=== PATIENT | female | born 1990 | race Caucasian/White ===

== ENCOUNTER 2018-12-23 01:12 | Emergency (ER) | payer OTHER ==
[2018-12-23 01:31] VITALS: TEMP 98; BMI 22.4
[2018-12-23] MEDS ORDERED: DEXAMETHASONE SOD PHOSPHATE 10 MG/1 ML VIAL IM ONE (01:35)
[2018-12-23] MEDS ORDERED: PENICILLIN G BENZATHINE 1,200,000 UNIT/2 ML PFS IM ONE (01:35)
[2018-12-23] MEDS ORDERED: KETOROLAC TROMETHAMINE 60 MG/2 ML VIAL IM ONE (01:35)
[2018-12-23] MEDS ORDERED: DEXAMETHASONE SOD PHOSPHATE 10 MG/1 ML VIAL ONE (01:41)
[2018-12-23] MEDS ORDERED: KETOROLAC TROMETHAMINE 60 MG/2 ML VIAL ONE (01:42)
[2018-12-23] MEDS ORDERED: KETOROLAC TROMETHAMINE 30 MG/1 ML VIAL IVPUSH ONE (01:43)
[2018-12-23] MEDS ORDERED: SODIUM CHLORIDE 0.9% 500 ML INFUS.BAG IV ONE (01:44)
--- NOTE | 2018-12-23 02:00 | PDOC ---
Documentation entered by Heath Goldsmith SCRIBE, acting as scribe for Mary Jo Santiago MD. Mary Jo Santiago MD: This documentation has been prepared by the Rupal paige Elijah, SCRIBE, under my direction and personally reviewed by me in its entirety. I confirm that the documentation accurately reflects all work, treatment, procedures, and medical decision making performed by me. History of Present Illness - General Chief Complaint: Sore Throat Stated Complaint: STREP THROAT/PAIN Time Seen by Provider: 12/23/18 01:28 History Source: Patient Exam Limitations: No Limitations - History of Present Illness Initial Comments: 12/23/18 01:34 Patient is a 28 year old female with no reported past medical history who presents to the ED with Strep Throat lasting for x3 days. Patient was diagnosed , given amoxicillin, but was only able to take the pills for the first day secondary to pain. Patient has no other complaints at this time. Allergies: NKA Past History - Past Medical History Allergies/Adverse Reactions: Allergies Allergy/AdvReac Type Severity Reaction Status Date / Time No Known Allergies Allergy Verified 12/23/18 01:31 COPD: No - Suicide/Smoking/Psychosocial Hx Smoking History: Never smoked Review of Systems - Review of Systems Comments:: 12/23/18 01:37 GENERAL/CONSTITUTIONAL: No fever or chills. No weakness. HEAD, EYES, EARS, NOSE AND THROAT: +Sore Throat. No change in vision. No ear pain or discharge CARDIOVASCULAR: No chest pain or shortness of breath. RESPIRATORY: No cough, wheezing, or hemoptysis. GASTROINTESTINAL: No nausea, vomiting, diarrhea or constipation. GENITOURINARY: No dysuria, frequency, or change in urination. MUSCULOSKELETAL: No joint or muscle swelling or pain. No neck or back pain. SKIN: No rash NEUROLOGIC: No headache, vertigo, loss of consciousness, or change in strength/ sensation. ENDOCRINE: No increased thirst. No abnormal weight change. HEMATOLOGIC/LYMPHATIC: No anemia, easy bleeding, or history of blood clots. ALLERGIC/IMMUNOLOGIC: No hives or skin allergy. *Physical Exam - Vital Signs Last Vital Signs Temp Pulse Resp BP Pulse Ox 98.0 F 108 H 18 114/64 98 12/23/18 01:29 12/23/18 01:29 12/23/18 01:29 12/23/18 01:29 12/23/18 01:29 - Physical Exam Comments: 12/23/18 01:37 GENERAL: Awake, alert, and fully oriented, in no acute distress HEAD: No signs of trauma EYES: PERRLA, EOMI, sclera anicteric, conjunctiva clear ENT: +Right Large, Infected and Swollen Tonsil. Auricles normal inspection, hearing grossly normal, nares patent. Moist mucosa NECK: Normal ROM, supple, no lymphadenopathy, JVD, or masses LUNGS: Breath sounds equal, clear to auscultation bilaterally. No wheezes, and no crackles HEART: Regular rate and rhythm, normal S1 and S2, no murmurs, rubs or gallops ABDOMEN: Soft, nontender, normoactive bowel sounds. No guarding, no rebound. No masses EXTREMITIES: Normal range of motion, no edema. No clubbing or cyanosis. No cords, erythema, or tenderness NEUROLOGICAL: Cranial nerves II through XII grossly intact. Normal speech, normal gait SKIN: Warm, Dry, normal turgor, no rashes or lesions noted. Medical Decision Making - Medical Decision Making 12/23/18 06:47 Pt non compliant with her amox, as she cannot swallow. So we gave her PCN in the butt and she received 1L NSS and she is feeling better and ready to go home. *DC/Admit/Observation/Transfer Diagnosis at time of Disposition: Strep throat - Discharge Dispostion Disposition: HOME Condition at time of disposition: Improved - Referrals Referrals: ON STAFF,NOT [Primary Care Provider] - Mark Waite MD [Staff Physician] - - Patient Instructions Printed Discharge Instructions: Strep Throat (Alternative Therapy), DI for Strep Throat - Post Discharge Activity
[2018-12-23 02:53] VITALS: BP 112/67; PULSE 101
== END 2018-12-23 02:53 | disposition home or self-care (01) ==
LOC: JER 01:12
PROC: 3E03329 Introduction of Other Anti-infective into Peripheral Vein, Percutaneous Approach (ICD-10-PCS; principal; 2018-12-23)
PROC: 3E0333Z Introduction of Anti-inflammatory into Peripheral Vein, Percutaneous Approach (ICD-10-PCS; 2018-12-23)
PROC: 3E0333Z Introduction of Anti-inflammatory into Peripheral Vein, Percutaneous Approach (ICD-10-PCS; 2018-12-23)
DX: J02.0 Streptococcal pharyngitis (principal)
CPT/HCPCS: 96372; 99281-25; J1100

== ENCOUNTER 2018-12-24 19:23 | Emergency (ER) | payer OTHER ==
--- NOTE | 2018-12-24 19:31 | PDOC ---
Rapid Medical Evaluation Time Seen by Provider: 12/24/18 19:25 Medical Evaluation: Allergies Allergy/AdvReac Type Severity Reaction Status Date / Time No Known Allergies Allergy Verified 12/23/18 01:31 12/24/18 19:26 HPI: B ear pain R>L x1 day and sore throat x6 days; treated in urgent care with Bicillin injection PE: OP erythemic with exudates ORDERS:decadron Discharge Disposition - Diagnosis Acute pharyngitis - Referrals Referrals: Chris Rosenthal [Primary Care Provider] - - Patient Instructions - Post Discharge Activity
[2018-12-24 19:34] VITALS: BP 119/77; PULSE 119; TEMP 98.8; BMI 22.4
[2018-12-24] MEDS ORDERED: DEXAMETHASONE LIQUID 0.5 MG/5 ML PO ONE (20:02)
[2018-12-24] MEDS ORDERED: DEXAMETHASONE SOD PHOSPHATE 10 MG/1 ML VIAL ONE (20:06)
--- NOTE | 2018-12-24 20:16 | PDOC ---
History of Present Illness - General Chief Complaint: Pain Stated Complaint: RIGHT EAR PAIN Time Seen by Provider: 12/24/18 19:25 History Source: Patient - History of Present Illness Initial Comments: 12/24/18 20:13 Chief complaint: Throat pain Patient a 28-year-old female who was diagnosed with strep earlier in the week, was unable to take the amoxicillin, came to the ER last night and got an injection of Bicillin, Toradol and Decadron. Patient states she's been taking 2 Advil in the morning and also this afternoon and she's having severe pain. Patient was able to take the tablets and drink fluids but it's very uncomfortable. Patient appears uncomfortable. No fever. GENERAL/CONSTITUTIONAL: No fever, weakness. dizziness HEAD, EYES, EARS, NOSE AND THROAT: No change in vision. +ear pain, no discharge. + sore throat. CARDIOVASCULAR: No chest pain RESPIRATORY: No shortness of breath or cough GASTROINTESTINAL: No pain, nausea, vomiting, diarrhea or constipation GENITOURINARY: No dysuria MUSCULOSKELETAL: No neck or back pain SKIN: No rash NEUROLOGIC: No headache, vertigo, loss of consciousness, or loss of sensation. GENERAL: The patient is awake, alert, and fully oriented, in no acute distress. HEAD: Normal with no signs of trauma. EYES: Pupils equal, round and reactive to light, sclera anicteric, conjunctiva clear. ENT: pharynx: + erythema, + exudate, uvula midline, no signs of peritonsillar abscess, ears clear, TMs normal NECK: supple CHEST: clear, nontender, rr ABD: soft, nontender BACK: no tenderness or signs of injury EXTREMITIES: Normal range of motion, no edema. NEUROLOGICAL: Normal speech, normal gait. SKIN: Warm, Dry Past History - Past Medical History Allergies/Adverse Reactions: Allergies Allergy/AdvReac Type Severity Reaction Status Date / Time No Known Allergies Allergy Verified 12/24/18 19:31 Home Medications: Ambulatory Orders Oxycodone HCl/Acetaminophen [Percocet 5-325 mg Tablet] 1 tab PO Q4H PRN #10 tablet MDD 6 12/24/18 COPD: No Other medical history: Pt denies - Surgical History Abdominal Surgery: Yes (L ovary removed 2016 (cyst)) - Suicide/Smoking/Psychosocial Hx Smoking History: Never smoked Have you smoked in the past 12 months: No Information on smoking cessation initiated: No Hx Alcohol Use: No Drug/Substance Use Hx: No *Physical Exam - Vital Signs Last Vital Signs Temp Pulse Resp BP Pulse Ox 98.8 F 119 H 18 119/77 97 12/24/18 19:31 12/24/18 19:31 12/24/18 19:31 12/24/18 19:31 12/24/18 19:31 ED Treatment Course - Medications Given in the ED: ED Medications Discontinued Medications Generic Name Dose Route Start Last Admin Trade Name Chirag PRN Reason Stop Dose Admin Dexamethasone 10 mg 12/24/18 20:02 12/24/18 20:09 Decadron Liquid - PO 12/24/18 20:03 10 mg ONCE ONE Administration Oxycodone/Acetaminophen 1 combo 12/24/18 20:02 12/24/18 20:09 Percocet 5/325 - PO 12/24/18 20:03 1 combo ONCE ONE Administration Medical Decision Making - Medical Decision Making 12/24/18 20:15 Healthy 28-year-old female with pharyngitis, strep, was given Bicillin last night, Toradol and Decadron. Patient still in pain think she has an ear infection. Ears do not show infection, discussed with patient pain control. We' ll give her Percocet here and reassess, also one more dose of Decadron. Patient took Advil 2 hours ago, 400 mg. feels better after Percocet discharge home with instructions Discussed issues, findings, results, applicable medications and treatments and follow-up. All these were understood and all questions were answered 12/24/18 20:50 *DC/Admit/Observation/Transfer Diagnosis at time of Disposition: Acute pharyngitis Qualifiers: Pharyngitis/tonsillitis etiology: streptococcus Qualified Code(s): J02.0 - Streptococcal pharyngitis - Discharge Dispostion Disposition: HOME Condition at time of disposition: Stable Decision to Admit order: No - Prescriptions Prescriptions: Oxycodone HCl/Acetaminophen [Percocet 5-325 mg Tablet] 1 tab PO Q4H PRN #10 tablet MDD 6 PRN Reason: Pain - Referrals Referrals: Chris Rosenthal [Primary Care Provider] - - Patient Instructions Printed Discharge Instructions: DI for Pharyngitis/Tonsillopharyngitis -- Adult Additional Instructions: Drink 2-3 L of water daily Motrin 600 mg every 6 hours for fever and pain. if needed, you can take 1 Percocet every 4-6 hours for the next 2 days Return to the nearest ER if short of breath, unable to swallow or feeling sicker Followup with your doctor in one to 2 days, appointment at [facility], go on their website, [employer] insurance up with their office is in providers and make an appointment in the next 1-2 days with someone that is convenient for you - Post Discharge Activity
[2018-12-24] MEDS ORDERED: predniSONE 20 MG TABLET (UD) ONE (20:51)
== END 2018-12-24 21:02 | disposition home or self-care (01) ==
LOC: JER 19:23
DX: J02.0 Streptococcal pharyngitis (principal)
CPT/HCPCS: 99281-25

== ENCOUNTER 2020-10-05 04:05 | Emergency (ER) | payer OTHER ==
[2020-10-05 04:21] VITALS: BP 123/83; PULSE 93; TEMP 98.4; BMI 22.8
[2020-10-05] MEDS ORDERED: ACETAMINOPHEN 325 MG TABLET (FP) PO ONE (04:33)
[2020-10-05] MEDS ORDERED: IBUPROFEN 400 MG TABLET (FP) PO ONE ×2 (04:40→04:44)
[2020-10-05] MEDS ORDERED: DIPHTH,PERTUSS(ACELL),TET 0.5 ML DISP.SYRIN IM ONE ×2 (04:44→05:05)
== END 2020-10-05 06:56 | disposition home or self-care (01) ==
LOC: JER 04:05
PROC: 08QPXZZ Repair Left Upper Eyelid, External Approach (ICD-10-PCS; principal; 2020-10-05)
PROC: 3E0234Z Introduction of Serum, Toxoid and Vaccine into Muscle, Percutaneous Approach (ICD-10-PCS; 2020-10-05)
DX: S01.112A Laceration without foreign body of left eyelid and periocular area, initial encounter (principal)
CPT/HCPCS: 70486-TC; 90471; 90715; 99284-25